=== PATIENT | male | born 1990 | race Caucasian/White ===

== ENCOUNTER 2020-07-01 17:19 | Emergency (ER) | payer OTHER ==
[2020-07-01] MEDS ORDERED: IBUPROFEN800 MG PO (18:44)
[2020-07-01] MEDS ORDERED: CYCLOBENZAPRINE10 MG PO (18:44)
== END 2020-07-01 19:11 | disposition home or self-care (01) ==
LOC: ER1 17:19
DX: S16.1XXA Strain of muscle, fascia and tendon at neck level, initial encounter (principal); S00.83XA Contusion of other part of head, initial encounter; I25.2 Old myocardial infarction; M54.5 Low back pain; V49.40XA Driver injured in collision with unspecified motor vehicles in traffic accident, initial encounter; Y92.410 Unspecified street and highway as the place of occurrence of the external cause
CPT/HCPCS: 70450; 72100; 72125; 99284